=== PATIENT | female | born 1945 | race Caucasian/White ===

== ENCOUNTER 2017-02-20 22:54 | Emergency (ER) | payer MEDICARE, OTHER ==
[~2017-02-20 22:54] MED LIST: DIOVAN80 MG PO; FIORICET1 EA; NORCO 5-325 TA1 EACH PO; OMEPRAZOLE20 M1 PO; OMEPRAZOLE20 MG; TEMOVATE; VITAMIN B12-FO1 EACH; VITAMIN D2000 UNI1; ZOMIG2.5 MG
[2017-02-21 05:33] LABS: HEMATOCRIT 34.6 % (34.2-44.1); HEMOGLOBIN 10.6 g/dL (12.0-16.0); RED BLOOD COUNT 4.11 x10e6/uL (3.6-5.1)
[2017-02-21 05:34] LABS: ALANINE AMINOTRANSFERASE 14 IU/L (0-55); ALBUMIN/GLOBULIN RATIO 1.1 (0.8-2.0); ALKALINE PHOSPHATASE 90 IU/L (40-150); ANION GAP 14.3 mmol/L (8-16); BASOPHILS % 0.5 % (0.0-1.0); BLOOD UREA NITROGEN 11 mg/dL (7-26); BUN/CREATININE RATIO 15 (6-25); CALCIUM 9.4 mg/dL (8.4-10.2); CARBON DIOXIDE 31 mmol/L (22-29); CHLORIDE 102 mmol/L (98-107); CREATININE, SERUM 0.71 mg/dL (0.57-1.11); EOSINOPHILS % 1.1 % (0.0-6.0); EST GLOMERULAR FILTRATION RATE > 60 ML/MIN (60-); GLUCOSE 86 mg/dL (74-118); LYMPHOCYTES # (AUTO) 1.1 (1.0-3.2); LYMPHOCYTES % 28.5 % (18.0-39.1); MEAN CORPUSCULAR HEMOGLOBIN 25.8 pg (28-32); MEAN CORPUSCULAR HGB CONC 30.6 g/dL (31-35); MEAN CORPUSCULAR VOLUME 84.2 fL (81-99); MONOCYTES # (AUTO) 0.3 (0.2-0.8); MONOCYTES % 8.9 % (4.4-11.3); NEUTROPHILS # (AUTO) 2.2 (2.1-6.9); NEUTROPHILS % 60.7 % (38.7-80.0); PLATELET COUNT 181 x10e3/uL (140-360); POTASSIUM 3.3 mmol/L (3.5-5.1); RED CELL DISTRIBUTION WIDTH 14.6 % (11.7-14.4); SODIUM 144 mmol/L (136-145)
== END 2017-02-21 00:41 | disposition left against medical advice (07) ==
LOC: ER 22:54
DX: R51 Headache (principal)
CPT/HCPCS: 36415; 80053; 85025; 99282